=== PATIENT | female | born 1960 | race Caucasian/White ===

== ENCOUNTER 2018-03-23 16:15 | Inpatient (IN) | payer OTHER ==
[~2018-03-23] VITALS: Ht 154.9 cm; Wt 63.5 kg
[2018-03-23 16:35] VITALS: BP 107/77
--- NOTE | 2018-03-23 17:56 | NUR ---
PT TO BED 1 VIA WHEELCHAIR AT THIS TIME
--- NOTE | 2018-03-23 18:00 | NUR ---
57 Y/O W/C/O LT HIP PAIN RADIATING TO HER LOWER BACK, RT HIP X 2 WKS, SWOLLEN ABD/BL LE S/P FELL WITH LT PELVIS FX SEEN AT [facility]; SUPPOSE TO GET PARACENTHESIS Q7 DAYS LAST ONE WAS 2 WKS AGO. PT DENIES N/V/D; AAOX4, PERRL, WITH EVEN AND STEADY GAIT; LUNGS CLEAR BL, BREATHING UNLABORED; HR EVEN AND REGULAR, BL PERIPHERAL PULSES PRESENT; BS ACTIVE X4. PT DENIES ANY FEVER, CP, SOB, OR COUGH AT THIS TIME; PT STATES 9/10 PAIN AT THIS TIME; VSS; PATIENT POSITIONED FOR COMFORT; HOB ELEVATED; BEDRAILS UP X2; BED DOWN.
--- NOTE | 2018-03-23 19:15 | NUR ---
REPORT GIVEN TO ALEJO BYRNE.
[2018-03-23] MEDS ORDERED: MORPHINE SULFATE 4 MG/ML SYR IVP ONE (19:20)
[2018-03-23] MEDS ORDERED: ONDANSETRON 4 MG/2 ML VIAL IVP ONE (19:20)
[2018-03-23] MEDS ORDERED: LIDOCAINE MPF 1% - 5 mL VIAL 5 ML ONE ×2 (19:36→20:47)
--- NOTE | 2018-03-23 19:38 | NUR ---
ASKED GIRISH NASH ORDERING BOX OPERATOR FOR MORPHINE AT THIS TIME. OUT IN [facility]
[2018-03-23 19:43] LABS: BASOPHILS # (AUTO) 0.1 K/uL (0.00-0.22); BASOPHILS % (AUTO) 0.9 % (0.0-2.0); EOSINOPHILS % (AUTO) 0.4 % (0.0-4.0); HEMATOCRIT 21.4 % (36-48); LYMPHOCYTES % (AUTO) 15.9 % (20.5-51.1); MEAN CORPUSCULAR HEMOGLOBIN 35 pg (27-31); MEAN CORPUSCULAR HGB CONC 33 g/dL (33-37); MEAN CORPUSCULAR VOLUME 105.6 fL (80-94); MONOCYTES # (AUTO) 0.7 K/uL (0.8-1.0); MONOCYTES % (AUTO) 10.6 % (1.7-9.3); NEUTROPHILS # (AUTO) 4.6 K/uL (1.8-7.7); NEUTROPHILS % (AUTO) 72.2 % (42.2-75.2); PLATELET COUNT (AUTO) 153 K/uL (140-450); RED BLOOD CELL COUNT(AUTO) 2.03 MIL/uL (4.20-5.40); RED CELL DISTRIBUTION WIDTH 15.6 % (11.6-13.7); WHITE BLOOD COUNT (AUTO) 6.3 K/uL (4.8-10.8)
[2018-03-23] MEDS ORDERED: MORPHINE SULFATE 4 MG/ML SYR ONE (19:52)
[2018-03-23 20:17] LABS: ANION GAP 16.4 (8-16); CARBON DIOXIDE 22.7 mmol/L (21-32); CREATININE 1.4 mg/dL (0.6-1.3); POTASSIUM 5.1 mmol/L (3.5-5.1); TOTAL BILIRUBIN 3.1 mg/dL (0.0-1.0)
[2018-03-23] MEDS ORDERED: fentaNYL 0.05 MG/ML VIAL ONE (20:54)
--- NOTE | 2018-03-23 21:00 | NUR ---
DR. MOSER @ BEDSIDE WITH RESIDENT FOR U/S GUIDED PARACENTESIS. CONSENT SIGNED. TIMEOUT TAKEN PRIOR TO PROCEDURE. VSS, NO ACUTE DISTRESS NOTED.
[2018-03-23] MEDS ORDERED: LIDOCAINE MPF 1% 5mL VIAL INJ ONE (21:10)
[2018-03-23] MEDS ORDERED: fentaNYL 0.05 MG/ML VIAL IVP ONE (21:10)
[2018-03-23] MEDS ORDERED: ALBUMIN HUMAN 25% 50 ML IV ONE (21:20)
[2018-03-23] MEDS ORDERED: ALBUMIN HUMAN 25% 0 ML IV ONE (21:29)
--- NOTE | 2018-03-23 21:30 | NUR ---
5 L DRAINED FROM R SIDE OF ABDOMEN, PT TOLERATED WELL. VSS NO ACUTE DISTRESS NOTED.
[2018-03-23] MEDS ORDERED: ACETAMINOPHEN 325 MG TAB PO PRN (21:45)
[2018-03-23] MEDS ORDERED: ONDANSETRON 4 MG/2 ML VIAL IVP PRN (21:45)
--- NOTE | 2018-03-23 22:10 | NUR ---
CHAPPERONED DR MOSER AT BEDSIDE
[2018-03-23] MEDS: NACL 0.9% 1,000 ML IV SCH (22:20)
--- NOTE | 2018-03-23 22:40 | NUR ---
Patient will be admitted to care of DR PANTOJA. Admited to [facility] Belongings list completed. Report to DELILAH BYRNE.
[2018-03-23 22:45] VITALS: BP 104/70
--- NOTE | 2018-03-23 22:45 | NUR ---
RECEIVED BEDSIDE REPORT FROM ALEJO BYRNE. PT IS A&0X4. RESPIRATIONS ARE EQUAL AND UNLABORED. NO DISTRESS NOTED. PT HAD A PARACENTESIS IN ER REMOVED 5.3 L FROM RLQ. DRESSING IS CLEAN DRY AND INTACT. HAS EDEMA ON ABDOMEN PITTING+2 BOWEL SOUNDS HYPOACTIVE. PT WITH PITTING EDEMA ON BLE. IV ON LAC 20G INFUSING NS AT 100ML/HR. VITAL SIGNS ARE WITHIN NORMAL LIMITS.SKIN INTACT. HAS SOME SCABS ON LEFT ARM. FALL PROTOCOL IN PLACE. CALL LIGHT WITHIN REACH. WILL CONTINUE TO MONITOR.
[2018-03-24] VITALS: BP 92/53
--- NOTE | 2018-03-24 00:15 | NUR ---
VITAL SIGNS ARE STABLE. PT EATING A SANDWICH. ALL NEEDS MET AT THIS TIME. CALL LIGHT WITHIN REACH.
[2018-03-24] MEDS ORDERED: MORPHINE SULFATE 2 MG/ML SYR IVP PRN (00:30)
--- NOTE | 2018-03-24 02:29 | NUR ---
PT SLEEPING. RESPIRATIONS ARE EQUAL AND UNLABORED. NO DISTRESS NOTED. ALL SAFETY MEASURES IN PLACE.
[2018-03-24] MEDS: MORPHINE SULFATE 4 MG/ML SYR IVP PRN ×2 (03:02→08:57)
--- NOTE | 2018-03-24 03:50 | NUR ---
STARTED BLOOD TRANSFUSION. VITAL SIGNS ARE STABLE B/P 92/56 & HR 87 NORMAL FOR PATIENT AND IS ASYMPTOMATIC. WILL CONTINUE TO MONITOR.
[2018-03-24 03:52] VITALS: BP 92/56
--- NOTE | 2018-03-24 04:05 | NUR ---
VITAL SIGNS ARE STABLE. PT DENIES ANY PAIN, SOB, NO FEVER OR CHILLS. CALL LIGHT IS WITHIN REACH. WILL CONTINUE TO MONITOR.
--- NOTE | 2018-03-24 06:00 | NUR ---
PTS VITAL SIGNS ARE WITHIN NORMAL LIMITS. PT DENIES ANY SOB OR PAIN. CALL LIGHT WITHIN REACH WILL CONTINUE TO MONITOR.
--- NOTE | 2018-03-24 06:50 | NUR ---
FIRST UNIT OF BLOOD COMPLETED PT HAD NO REACTION. VITAL SIGNS ARE STABLE. CALL LIGHT IS WITHIN REACH. WILL CONTINUE TO MONITOR.
[2018-03-24] MEDS: NACL 0.9% 1,000 ML IV SCH ×2 (06:56→21:27)
--- NOTE | 2018-03-24 07:15 | NUR ---
GAVE REPORT TO NIGHT NURSE FOR CONTINUITY OF CARE.PT IN STABLE CONDITION. Addendum: 03/24/18 at 2021 by Maureen Briggs RN GAVE REPORT AT 1914
--- NOTE | 2018-03-24 07:24 | NUR ---
ENDORSED PT TO DAY SHIFT RN. PT IN STABLE CONDITION.
--- NOTE | 2018-03-24 07:25 | NUR ---
RECEIVED REPORT FROM NIGHT NURSE. PT IN STABLE CONDITION. RESPIRATIONS EVEN AND UNLABORED. IV INTACT, PATENT. REVIEWED CARE PLAN WITH PT, PT VERBALIZED UNDERSTANDING. SAFETY MEASURES IN PLACE. CALL LIGHT AT BEDSIDE. BED IN LOW POSITION. WILL CONTINUE TO MONITOR.
[2018-03-24 08:00] VITALS: BP 99/57
--- NOTE | 2018-03-24 08:39 | NUR ---
PATIENT HAS BEEN SCREENED AND CATEGORIZED MODERATE NUTRITION RISK. PATIENT WILL BE SEEN WITHIN 3-5 DAYS OF ADMISSION. 03/26/18 03/28/[address]
--- NOTE | 2018-03-24 08:45 | NUR ---
PT STARTED ON 2ND UNIT OF BLOOD. WILL CONTINUE TO MONITOR.
[2018-03-24] MEDS: NADOLOL 20 MG TAB PO SCH ×2 (08:57→21:00)
[2018-03-24] MEDS ORDERED: LACTULOSE 20 GM/30 ML UDC PO SCH (09:00)
[2018-03-24] MEDS ORDERED: SPIRONOLACTONE 25 MG TAB PO SCH (09:00)
--- NOTE | 2018-03-24 10:00 | NUR ---
ASSISTED PT WITH BEDPAN. WILL CONTINUE TO MONITOR.
--- NOTE | 2018-03-24 10:16 | NUR ---
Follow up appointment given to patient with verbal understanding. Appointment card given to see Dr. Behzad Kemp PCP on 03/31/18 at 2892 ([address] [facility]. [id number]). Informed her nurse Maureen that pt has a follow up appointment with PCP.
[2018-03-24 12:00] VITALS: BP 93/62
--- NOTE | 2018-03-24 12:45 | NUR ---
PT FINSISHED 2ND UNIT OF BLOOD. WILL CONTINUE TO MONITOR.
--- NOTE | 2018-03-24 14:00 | NUR ---
ASSITED PT WITH BEDPAN. WILL CONTINUE TO MONITOR.
[2018-03-24 16:00] VITALS: BP 98/63
[2018-03-24] MEDS ORDERED: HYDROcodone/APAP 5/325 MG 1 TAB TAB PO PRN (17:00)
[2018-03-24] MEDS: LACTULOSE 20 GM/30 ML UDC PO SCH ×2 (17:29→21:26)
[2018-03-24] MEDS: HYDROcodone/APAP 5/325 MG 1 TAB TAB PO PRN (17:29)
--- NOTE | 2018-03-24 17:29 | NUR ---
PT REQUESTING PAIN MEDICATION FOR ABDOMINAL PAIN. MEDICATED WITH NORCO. WILL CONTINUE TO MONITOR.
--- NOTE | 2018-03-24 19:15 | NUR ---
GAVE REPORT TO NIGHT NURSE FOR CONTINUITY OF CARE.PT IN STABLE CONDITION.
--- NOTE | 2018-03-24 19:16 | NUR ---
RECEIVED REPORT DAY SHIFT RN. PT IS A&0X4. RESPIRATIONS ARE EQUAL AND UNLABORED. NO DISTRESS NOTED. PT HAD A PARACENTESIS YESTERDAY DRESSING ON RLQ IS CLEAN DRY AND INTACT. HAS EDEMA ON ABDOMEN PITTING+2 BOWEL SOUNDS HYPOACTIVE. PT WITH PITTING EDEMA ON BLE. IV ON LAC 20G INFUSING NS AT 75ML/HR. VITAL SIGNS ARE WITHIN NORMAL LIMITS.SKIN INTACT. HAS SOME SCABS ON LEFT ARM. FALL PROTOCOL IN PLACE. CALL LIGHT WITHIN REACH. WILL CONTINUE TO MONITOR.
[2018-03-24 20:00] VITALS: BP 95/62
[2018-03-24 20:43] LABS: HEMATOCRIT 30.5 % (36-48); HEMOGLOBIN 10.1 g/dL (12.0-16.0)
[2018-03-24 20:55] LABS: ALBUMIN 1.9 g/dL (3.4-5.0); ANION GAP 15.2 (8-16); CARBON DIOXIDE 22.2 mmol/L (21-32); CREATININE 1.3 mg/dL (0.6-1.3); POTASSIUM 4.4 mmol/L (3.5-5.1); TOTAL BILIRUBIN 2.7 mg/dL (0.0-1.0)
[2018-03-24] MEDS ORDERED: SENNA 8.6 MG TAB PO SCH (21:00)
--- NOTE | 2018-03-24 21:26 | NUR ---
VITAL SIGNS ARE WITHIN NORMAL LIMITS. DUE MEDICATIONS GIVEN PT TOLERATED WELL. CALL LIGHT WITHIN REACH. WILL CONTINUE TO MONITOR
[2018-03-24] MEDS: PANTOPRAZOLE 40 MG INJ VIAL IVP SCH (21:27)
[2018-03-25] VITALS: BP 104/68
--- NOTE | 2018-03-25 00:17 | NUR ---
VITAL SIGNS ARE WITHIN NORMAL LIMITS. ALL NEEDS MET AT THIS TIME WILL CONTINUE TO MONITOR
--- NOTE | 2018-03-25 02:46 | NUR ---
PT SLEEPING NO DISTRESS NOTED. CALL LIGHT WITHIN REACH. WILL CONTINUE TO MONITOR.
[2018-03-25 04:00] VITALS: BP 92/47
--- NOTE | 2018-03-25 04:00 | NUR ---
VITAL SIGNS ARE WITHIN NORMAL LIMITS. ASSISTED PT TO BED JOYCE. ALL NEEDS MET AT THIS TIME .WILL CONTINUE TO MONITOR.
--- NOTE | 2018-03-25 05:30 | NUR ---
PT SLEEPING COMFORTABLY. RESPIRATIONS ARE EQUAL AND UNLABORED. NO DISTRESS NOTED. ALL SAFETY MEASURES ARE IN PLACE.
[2018-03-25 06:53] LABS: BASOPHILS % (AUTO) 0.5 % (0.0-2.0); EOSINOPHILS # (AUTO) 0.1 K/uL (0-0.4); HEMATOCRIT 29.2 % (36-48); HEMOGLOBIN 9.8 g/dL (12.0-16.0); LYMPHOCYTES # (AUTO) 0.6 K/uL (2.5-16.5); LYMPHOCYTES % (AUTO) 12.2 % (20.5-51.1); MEAN CORPUSCULAR HEMOGLOBIN 34 pg (27-31); MEAN CORPUSCULAR HGB CONC 34 g/dL (33-37); MEAN CORPUSCULAR VOLUME 100.5 fL (80-94); MONOCYTES # (AUTO) 0.5 K/uL (0.8-1.0); MONOCYTES % (AUTO) 10.5 % (1.7-9.3); NEUTROPHILS # (AUTO) 3.9 K/uL (1.8-7.7); NEUTROPHILS % (AUTO) 75.8 % (42.2-75.2); RED BLOOD CELL COUNT(AUTO) 2.91 MIL/uL (4.20-5.40); RED CELL DISTRIBUTION WIDTH 17.4 % (11.6-13.7); WHITE BLOOD COUNT (AUTO) 5.2 K/uL (4.8-10.8)
[2018-03-25 06:58] LABS: PLATELET COUNT (AUTO) 97 K/uL (140-450)
--- NOTE | 2018-03-25 07:06 | NUR ---
ENDORSED PT TO DAY SHIFT RN. PT IN STABLE CONDITION.
[2018-03-25 07:15] LABS: ALBUMIN 1.9 g/dL (3.4-5.0); ANION GAP 14.9 (8-16); CARBON DIOXIDE 21.9 mmol/L (21-32); CREATININE 1.2 mg/dL (0.6-1.3); POTASSIUM 4.8 mmol/L (3.5-5.1); TOTAL BILIRUBIN 3.2 mg/dL (0.0-1.0)
--- NOTE | 2018-03-25 07:45 | NUR ---
RECEIVED REPORT ACTUARIAL MANAGER RN. PT IS A&0X4. RESPIRATIONS ARE EQUAL AND UNLABORED. NO DISTRESS NOTED. PT HAD A PARACENTESIS 03/23/18. DRESSING ON RLQ IS CLEAN DRY AND INTACT. HAS EDEMA ON ABDOMEN PITTING+2 BOWEL SOUNDS HYPOACTIVE. PT WITH PITTING EDEMA ON BLE. IV ON LAC 20G INFUSING NS AT 75ML/HR. VITAL SIGNS ARE WITHIN NORMAL LIMITS.SKIN INTACT. HAS SOME SCABS ON LEFT ARM. FALL PROTOCOL IN PLACE. CALL LIGHT WITHIN REACH. WILL CONTINUE TO MONITOR.
[2018-03-25 08:00] VITALS: BP 94/48
[2018-03-25] MEDS: NACL 0.9% 1,000 ML IV SCH ×2 (08:30→08:44)
[2018-03-25] MEDS: LACTULOSE 20 GM/30 ML UDC PO SCH ×4 (09:00→20:58)
--- NOTE | 2018-03-25 09:17 | NUR ---
PT SLEEPING COMFORTABLY. RESPIRATIONS ARE EQUAL AND UNLABORED. NO DISTRESS NOTED. ALL SAFETY MEASURES ARE IN PLACE.
[2018-03-25] MEDS: PANTOPRAZOLE 40 MG INJ VIAL IVP SCH ×2 (09:57→20:59)
[2018-03-25] MEDS: HYDROcodone/APAP 5/325 MG 1 TAB TAB PO PRN ×2 (09:58→19:43)
[2018-03-25] MEDS ORDERED: diphenhydrAMINE 50 MG/ML VIAL ONE (12:18)
[2018-03-25] MEDS ORDERED: MIDAZOLAM 2 MG/2 ML VIAL ONE ×2 (12:18)
[2018-03-25] MEDS ORDERED: fentaNYL 0.05 MG/ML VIAL ONE (12:18)
[2018-03-25 12:45] VITALS: BP 103/52
--- NOTE | 2018-03-25 12:45 | NUR ---
PT RETURNED FROM EGD PROCEDURE. PTS VITAL SIGNS ARE WITHIN NORMAL LIMITS. PT DENIES ANY SOB OR PAIN. CALL LIGHT WITHIN REACH WILL CONTINUE TO MONITOR.
[2018-03-25 13:57] LABS: BARBITURATE, URINE NEG. ng/ml (NEG <=200); BENZODIAZEPINE, URINE NEG. ng/mL (NEG <=200); CANNABINOID, URINE NEG. ng/mL (NEG <=50); COCAINE, URINE NEG. ng/mL (NEG <=300); OPIATE, URINE POS. ng/mL (NEG <=2000); PHENCYCLIDINE SCREEN,URINE NEG. ng/mL (NEG <=25)
[2018-03-25 14:14] LABS: APPEARANCE,URINE HAZY (CLEAR); BILIRUBIN,URINE SMALL (NEGATIVE); BLOOD, URINE NEGATIVE (NEGATIVE); COLOR,URINE AMBER (YELLOW); LEUKOCYTE ESTERASE ,URINE SMALL (NEGATIVE); NITRITE, URINE NEGATIVE (NEGATIVE); UGLUCOSE NEGATIVE (NEGATIVE)
[2018-03-25 14:25] LABS: RBC,URINE NONE SEEN /HPF (0-5)
--- NOTE | 2018-03-25 14:37 | NUR ---
CM NOTE RECEIVED SS ORDER FOR PT REHAB IF QUALIFIED PER PT EVAL. PENDING PT EVAL AND RECOMMENDATIONS. CM/SW WILL FOLLOW UP.
[2018-03-25 16:00] VITALS: BP 107/69
[2018-03-25] MEDS: FERROUS SULFATE 325 MG TABEC PO SCH (17:19)
--- NOTE | 2018-03-25 19:43 | NUR ---
PT STATED HAVING PAIN 6/10, PAIN MEDICATION ORDERED ADMINISTERED, PT TOLERATED WELL, NO DISTRESS NOTED, CALL LIGHT WITHIN REACH, WILL CONTINUE TO MONITOR.
--- NOTE | 2018-03-25 19:47 | NUR ---
ENDORSED PATIENT TO RETAIL COORDINATOR NURSE FOR CONTINUITY OF CARE. PATIENT IN STABLE CONDITION.
--- NOTE | 2018-03-25 19:48 | NUR ---
RECEIVED BEDSIDE REPORT FROM DAY SHIFT NURSE SKY RN, PT STABLE, IV TO L AC 20G PATENT, INTACT, INFUSING NS @50ML/HR, INFUSING WELL, PT ON ROOM AIR, NO SOB, INITIAL ASSESSMENT DONE, ALL SAFETY PRECAUTION MET,CALL LIGHT WITHIN REACH, WILL CONTINUE TO MONITOR.
--- NOTE | 2018-03-25 20:59 | NUR ---
DUE MEDICATION ADMINISTERED, PT TOLERATED WELL, NO DISTRESS NOTED, CALL LIGHT WITHIN REACH, WILL CONTINUE TO MONITOR.
[2018-03-25] MEDS ORDERED: SENNA 8.6 MG TAB PO SCH (21:00)
--- NOTE | 2018-03-25 23:50 | NUR ---
CHECKED ON PT, PT SLEEPING, NO DISTRESS NOTED, V/S TAKEN, WNL, CALL LIGHT WITHIN REACH, WILL CONTINUE TO MONITOR.
[2018-03-26] VITALS: BP 101/60
--- NOTE | 2018-03-26 03:10 | NUR ---
CHECKED ON PT, PT SLEEPING, NO DISTRESS NOTED, CALL LIGHT WITHIN REACH, WILL CONTINUE TO MONITOR.
[2018-03-26] MEDS: NACL 0.9% 1,000 ML IV SCH ×2 (05:25→12:36)
--- NOTE | 2018-03-26 07:25 | NUR ---
RECEIVED BEDSIDE REPORT FROM TAPPER SUPERVISOR NURSE, PT AAOX4, IV TO L AC 20G, ASYMPTOMATIC, PATENT, INTACT, INFUSING NS AT 50ML/HR. PT ON ROOM AIR, NO S/S OF ACUTE DISTRESS NOTED. ABD HAS SOME DISTENSION, BLE PITTING EDEMA 2+. ALL SAFETY PRECAUTION MET, BED ALARM ON, CALL LIGHT WITHIN REACH, WILL CONTINUE TO MONITOR.
--- NOTE | 2018-03-26 07:28 | NUR ---
ENDORSED PT TO DAY SHIFT NURSE DUSTIN RN, PT IN STABLE CONDITION, NO DISTRESS NOTED, CALL LIGHT WITHIN REACH.
[2018-03-26 07:54] LABS: BASOPHILS % (AUTO) 0.5 % (0.0-2.0); EOSINOPHILS # (AUTO) 0.1 K/uL (0-0.4); EOSINOPHILS % (AUTO) 1.2 % (0.0-4.0); HEMATOCRIT 26.1 % (36-48); HEMOGLOBIN 8.8 g/dL (12.0-16.0); LYMPHOCYTES # (AUTO) 0.9 K/uL (2.5-16.5); LYMPHOCYTES % (AUTO) 18.5 % (20.5-51.1); MEAN CORPUSCULAR HEMOGLOBIN 34 pg (27-31); MEAN CORPUSCULAR HGB CONC 34 g/dL (33-37); MEAN CORPUSCULAR VOLUME 101.6 fL (80-94); MONOCYTES # (AUTO) 0.6 K/uL (0.8-1.0); MONOCYTES % (AUTO) 12.7 % (1.7-9.3); NEUTROPHILS # (AUTO) 3.3 K/uL (1.8-7.7); NEUTROPHILS % (AUTO) 67.1 % (42.2-75.2); PLATELET COUNT (AUTO) 96 K/uL (140-450); RED BLOOD CELL COUNT(AUTO) 2.57 MIL/uL (4.20-5.40); RED CELL DISTRIBUTION WIDTH 17.6 % (11.6-13.7); WHITE BLOOD COUNT (AUTO) 4.9 K/uL (4.8-10.8)
[2018-03-26 07:57] LABS: ANION GAP 13.2 (8-16); CARBON DIOXIDE 19.6 mmol/L (21-32); CREATININE 1.1 mg/dL (0.6-1.3); POTASSIUM 4.8 mmol/L (3.5-5.1)
[2018-03-26 08:00] VITALS: BP 97/60
[2018-03-26 08:24] LABS: MAGNESIUM 1.9 mg/dL (1.8-2.4); PHOSPHORUS 2.4 mg/dL (2.5-4.9)
--- NOTE | 2018-03-26 09:00 | NUR ---
PT AMB WITH PHYSICAL THERAPIST WITH WALKER. NO DISTRESS NOTED.
[2018-03-26] MEDS: HYDROcodone/APAP 5/325 MG 1 TAB TAB PO PRN ×2 (09:07→16:06)
[2018-03-26] MEDS: LACTULOSE 20 GM/30 ML UDC PO SCH ×3 (09:07→16:54)
[2018-03-26] MEDS: FERROUS SULFATE 325 MG TABEC PO SCH ×3 (09:08→16:54)
[2018-03-26] MEDS: PANTOPRAZOLE 40 MG INJ VIAL IVP SCH (09:08)
[2018-03-26] MEDS ORDERED: SODIUM PHOSPHATE 15 MMOLE in NACL 0.9% 250 ML IV SCH (12:00)
--- NOTE | 2018-03-26 13:31 | NUR ---
Manager Civil Note: I faxed inquiry to [facility], fax number , phone number (contracted with [facility]). I also faxed inquiry to [facility] for lamont, fax number . Addendum: 03/26/18 at 1342 by Roxy Garduno SS correction: I also faxed inquiry to [facility] for lamont, fax number .
--- NOTE | 2018-03-26 13:34 | NUR ---
KATTY NOTE RECEIVED ORDER FOR HOME PT/WALKER FAXED ORDER FOR HOME PT/WALKER TO [facility] ([facility]) [phone]. PER [facility] ([facility]) KATTY ALAS PH# [phone] EXT [phone], FOR HOME HEALTH TO SEND INQUIRY TO ANY [facility] CONTRACTED HOME HEALTH AND FOR WALKER TO SEND ORDER TO [facility]. NOELLE MONK.
--- NOTE | 2018-03-26 14:57 | NUR ---
PAGED DR Alberto DUNN, [phone].
--- NOTE | 2018-03-26 14:59 | NUR ---
SPOKE WITH CNA HHA KIM. ADRI WILL BE SENT TO THE HOSP BTW 5-6PM TODAY, APPROXIMATELY. ALSO WAITING ON HOME PT SET UP.
--- NOTE | 2018-03-26 15:03 | NUR ---
SPOKE WITH [employer]LL [employer] TO DISCHARGE. NO COLONOSCOPY NEEDED AT THIS TIME.
--- NOTE | 2018-03-26 15:12 | NUR ---
Supervisor Carpenters Note: Per Danis from [facility] , walker will be delivered between 5pm-6pm today, patient's nurse Delon made aware.
--- NOTE | 2018-03-26 15:15 | NUR ---
CM NOTE PER [facility] KATTY ALAS, FOR THE ACCEPTING HOME HEALTH, AUTH# [id number] AND FOR THE DME SHE HAS ALREADY FAXED SEAMUS AUTH TO [facility] ATTN: TITA. NOELLE MONK.
--- NOTE | 2018-03-26 15:19 | NUR ---
Assistant District Attorney Note: I provided Oksana from [facility], fax number , phone number with authorization # from [facility], per Oksana they will send a nurse to patient's home tomorrow or on Friday, patient's nurse Delon made aware home health services have been coordinated.
[2018-03-26 16:00] VITALS: BP 100/54
[2018-03-26] MEDS ORDERED: PANT40EC PO (16:10)
[2018-03-26] MEDS ORDERED: LACT10SO4 PO (16:12)
[2018-03-26] MEDS ORDERED: SPIR50TA PO (16:13)
[2018-03-26] MEDS ORDERED: NADO20TA30 PO (16:14)
--- NOTE | 2018-03-26 17:56 | NUR ---
PT DISCHARGED PER DR PANTOJA ORDER, OK BY CONSULT FROM DR DUNN. DISCHARGE INSTRUCTIONS AND MEDS TEACHING GIVEN. PT VERBALIZED UNDERSTANDING. RX GIVEN. MADE PT AWARE THAT SHE NEEDS TO MAKE APPT WITH DR DUNN, DR DOWD AND HER PCP. PT SIGNED ALL DISCHARGE PAPER. IV DC'D, TIP INTACT, PRESSURE APPLIED. WALKER HAS BEEN DELIVERED, PROVIDED PT WITH INFO FOR HOME PHYSICAL THERAPY. WILL HELP PT GET DRESSED AFTER DINNER.
--- NOTE | 2018-03-26 19:33 | NUR ---
WHEELED PT TO ER PARKING. PT LEFT IN STABLE CONDITION. WRIST BAND REMOVED. LEFT WITH HER HOME MEDS AND DISCHARGE PAPERS. WALKER AND CRUTCHES WERE PLACED ONTO PT'S VEHICLE REAR SEAT. Addendum: 03/26/18 at 1935 by Delon López RN TIME LEFT WAS 183
== END 2018-03-26 18:30 | disposition home health service (06) | DRG 280 ==
LOC: MED 16:15 → MTU 21:47
PROVIDERS: ADMIT Hospitalist; ATTEND Hospitalist
PROC: 0W9G3ZZ Drainage of Peritoneal Cavity, Percutaneous Approach (ICD-10-PCS; principal; 2018-03-23)
PROC: 30233N1 Transfusion of Nonautologous Red Blood Cells into Peripheral Vein, Percutaneous Approach (ICD-10-PCS; 2018-03-24)
PROC: 0DB68ZX Excision of Stomach, Via Natural or Artificial Opening Endoscopic, Diagnostic (ICD-10-PCS; 2018-03-25)
DX: K70.31 Alcoholic cirrhosis of liver with ascites (principal); N17.0 Acute kidney failure with tubular necrosis; K76.7 Hepatorenal syndrome; E43 Unspecified severe protein-calorie malnutrition; I95.89 Other hypotension; K76.6 Portal hypertension; E87.1 Hypo-osmolality and hyponatremia; E83.39 Other disorders of phosphorus metabolism; N18.3 Chronic kidney disease, stage 3 (moderate); E87.5 Hyperkalemia; D64.9 Anemia, unspecified; E87.70 Fluid overload, unspecified; K26.9 Duodenal ulcer, unspecified as acute or chronic, without hemorrhage or perforation; E86.0 Dehydration; F17.210 Nicotine dependence, cigarettes, uncomplicated; K25.9 Gastric ulcer, unspecified as acute or chronic, without hemorrhage or perforation; G89.29 Other chronic pain; K44.9 Diaphragmatic hernia without obstruction or gangrene; Z68.26 Body mass index [BMI] 26.0-26.9, adult; Z88.6 Allergy status to analgesic agent; Z80.9 Family history of malignant neoplasm, unspecified
CPT/HCPCS: 36415; 72170; 76700; 76770; 80048; 80053; 80305; 81001; 83690; 83735; 83935; 84100; 84300; 85018; 85025; 85610; 85730; 86677; 86886; 86900; 86901; 86920; 87081; 87086; 87186; 96365; 96375; 97116; 99285; C9113; J1200; J2001; J2250; J2270; J2405; J3010; J7030; P9016; P9046; Q0092

== ENCOUNTER 2018-03-31 12:16 | Emergency (ER) | payer OTHER ==
[~2018-03-31] VITALS: Ht 154.9 cm; Wt 49.9 kg
[~2018-03-31 12:16] MED LIST: LACT10SO4 PO; PANT40EC PO; SPIR50TA PO
--- NOTE | 2018-03-31 12:25 | NUR ---
Patient ambulated to bed 9. RN evaluating patient at bedside.
[2018-03-31 12:26] VITALS: BP 126/60
--- NOTE | 2018-03-31 12:40 | NUR ---
PATIENT PRESENTS TO ED WITH C/O ASCITES, LARGE DISTENDED ABDOMEN----LAST PARACENTESIS X10 DAYS AGO PT STATES USUALLY IS SEEN IN [place] . DENIES N/V/D; SKIN IS PINK/WARM/DRY; AAOX4 WITH EVEN AND STEADY GAIT; LUNGS CLEAR BL; HR EVEN AND REGULAR; PT DENIES ANY FEVER, CP, SOB, OR COUGH AT THIS TIME; PATIENT STATES PAIN OF 0/10 AT THIS TIME; VSS; PATIENT POSITIONED FOR COMFORT; HOB ELEVATED; BEDRAILS UP X2; BED DOWN. ER MD MADE AWARE OF PT STATUS.
--- NOTE | 2018-03-31 13:22 | NUR ---
EKG completed at bedside by EMT.
[2018-03-31 13:33] LABS: BASOPHILS % (AUTO) 0.6 % (0.0-2.0); EOSINOPHILS # (AUTO) 0.1 K/uL (0-0.4); EOSINOPHILS % (AUTO) 1.1 % (0.0-4.0); HEMOGLOBIN 9.9 g/dL (12.0-16.0); LYMPHOCYTES # (AUTO) 0.9 K/uL (2.5-16.5); MEAN CORPUSCULAR HEMOGLOBIN 33 pg (27-31); MEAN CORPUSCULAR HGB CONC 33 g/dL (33-37); MEAN CORPUSCULAR VOLUME 99.7 fL (80-94); MONOCYTES # (AUTO) 0.9 K/uL (0.8-1.0); MONOCYTES % (AUTO) 15.1 % (1.7-9.3); NEUTROPHILS # (AUTO) 4.3 K/uL (1.8-7.7); NEUTROPHILS % (AUTO) 69.2 % (42.2-75.2); PLATELET COUNT (AUTO) 139 K/uL (140-450); RED BLOOD CELL COUNT(AUTO) 3.01 MIL/uL (4.20-5.40); RED CELL DISTRIBUTION WIDTH 17.2 % (11.6-13.7); WHITE BLOOD COUNT (AUTO) 6.3 K/uL (4.8-10.8)
[2018-03-31 13:49] LABS: ANION GAP 10.3 (8-16); CARBON DIOXIDE 21.9 mmol/L (21-32); POTASSIUM 4.2 mmol/L (3.5-5.1)
[2018-03-31 13:54] LABS: PROTHROMBIN TIME 13.1 secs (10.8-13.4)
[2018-03-31 13:55] LABS: ALBUMIN 1.7 g/dL (3.4-5.0); TOTAL BILIRUBIN 1.9 mg/dL (0.0-1.0)
[2018-03-31 14:36] LABS: BILIRUBIN,URINE 1+ (NEGATIVE); BLOOD, URINE 1+ (NEGATIVE); LEUKOCYTE ESTERASE ,URINE TRACE (NEGATIVE); NITRITE, URINE POSITIVE (NEGATIVE); UGLUCOSE NEGATIVE (NEGATIVE)
[2018-03-31 14:43] LABS: APPEARANCE,URINE HAZY (CLEAR); COLOR,URINE AMBER (YELLOW)
[2018-03-31 14:51] LABS: RBC,URINE NONE SEEN /HPF (0-5)
--- NOTE | 2018-03-31 15:50 | NUR ---
Note [email or web address] in EDM - 03/31/18 at 1552 by [email or web address] Patient discharged with v/s stable. Written and verbal after care instructions given and explained to parent/guardian. Rx given Keflex, Hydrocortisone, and Loratadine. Parent/Guardian verbalized understanding. Ambulatoryby parent. All questions addressed prior to discharge. Advised to follow up with PMD.
--- NOTE | 2018-03-31 15:57 | NUR ---
Carol whittington in ED - 03/31/18 at 1629 by CHELSY PATIENT DRAINING WITH AMNIOCENTISIS. CLOSELY MONITORING BLOOD PRESSURE. NO ACUTE CHANGES NOTED.
--- NOTE | 2018-03-31 16:00 | NUR ---
PATIENT DRAINING WITH PERICENTISIS. CLOSELY MONITORING BLOOD PRESSURE. NO ACUTE CHANGES NOTED.
--- NOTE | 2018-03-31 16:29 | NUR ---
PERICENTISIS FINSIHED. DRAINED OVER 6400 L OF FLUID. PATIENT VSS.
--- NOTE | 2018-03-31 17:21 | NUR ---
PT ADMITS BREATHING EASIER, DENIES ANY PRESSURE TO ABDOMEN OR DIAPHRAGM IN CONTRAST UPON ARRIVAL ----FULL CLEAR SPEECH WITH NO ACCESSORY MUSCLE USE NOTED. NO SANGUINEOUS OR SEROSANGUINEOUS DRAINAGE NOTED FROM PARACENTESIS SITE.
[2018-03-31 18:01] VITALS: BP 109/52
--- NOTE | 2018-03-31 18:02 | NUR ---
Patient discharged with v/s stable. Written and verbal after care instructions given and explained. Patient verbalized understanding. Ambulatory with walker. All questions addressed prior to discharge. Advised to follow up with PMD.
== END 2018-03-31 18:02 | disposition home or self-care (01) ==
LOC: MED 12:16
DX: R18.8 Other ascites (principal); K74.60 Unspecified cirrhosis of liver; D53.9 Nutritional anemia, unspecified; E87.1 Hypo-osmolality and hyponatremia; R06.02 Shortness of breath; R53.1 Weakness; K21.9 Gastro-esophageal reflux disease without esophagitis; Z79.899 Other long term (current) drug therapy
CPT/HCPCS: 36415; 49083; 80053; 81001; 85025; 85610; 85730; 87086; 87186; 93005; 99285

== ENCOUNTER 2018-04-13 15:02 | Emergency (ER) | payer OTHER ==
[~2018-04-13] VITALS: Ht 160 cm; Wt 46.7 kg
[2018-04-13 15:17] VITALS: BP 99/70
[2018-04-13] MEDS: ONDANSETRON 4 MG ODT PO ONE (16:24)
[2018-04-13] MEDS: PANTOPRAZOLE 40 MG TABEC PO ONE (16:25)
[2018-04-13 16:35] VITALS: BP 91/62
== END 2018-04-13 16:35 | disposition home or self-care (01) ==
LOC: MED 15:02
DX: R18.8 Other ascites (principal); K21.9 Gastro-esophageal reflux disease without esophagitis; Z79.899 Other long term (current) drug therapy
CPT/HCPCS: 49082; 99285; Q0162